=== PATIENT | male | born 1985 | race Caucasian/White ===

== ENCOUNTER 2021-08-26 15:16 | Emergency (ER) | payer OTHER, SELFPAY ==
[2021-08-26 15:28] VITALS: BP 146/88; PULSE 92; RESP 16; TEMP 36.8; O2SAT 99
--- NOTE | 2021-08-26 15:28 | ED.DENTAL ---
HPI - Dental/Oral General Chief complaint: Upper Respiratory Infection Stated complaint: sore throat Time Seen by Provider: 08/26/21 15:28 Source: patient Mode of arrival: ambulatory Limitations: no limitations History of Present Illness HPI Narrative: 35-year-old male presents with irritation to roof of mouth for 1 day. Reports pain with swallowing. States that he can feel swollen bumps on roof of mouth. Denies eating anything that was irritating. Recently saw dentist and was told good oral health. Denies dental pain. No fever chills. Still able to eat and drink but reports that certain foods are irritating. All systems reviewed and negative except. Related Data Home Medications Medication Instructions Recorded Confirmed albuterol sulfate INHALATION 08/26/21 levetiracetam PO 08/26/21 metformin mg 08/26/21 oxcarbazepine 08/26/21 Allergies Allergy/AdvReac Type Severity Reaction Status Date / Time No Known Allergies Allergy Verified 08/26/21 15:28 Review of Systems Review of Systems: CONSTITUTIONAL: Denies fever, chills, or sweats. EYES: Denies visual changes, redness, or discharge. ENT: Denies rhinorrhea, congestion, sore throat, or otalgia. Reports pain to roof of mouth. CARDIOVASCULAR: Denies chest pain, palpitations, or edema. RESPIRATORY: Denies cough or dyspnea. GASTROINTESTINAL: Denies abdominal pain, nausea, vomiting, or diarrhea. GENITOURINARY: Denies dysuria or hematuria. SKIN: Denies rash or itching. MUSCULOSKELETAL: Denies back pain, joint pain, or myalgia. NEUROLOGIC: Denies headache, numbness, or weakness. PSYCHIATRIC: Denies anxiety or depression. All other systems reviewed are negative, except as documented in HPI. PMFSH Comments At time of signature, agree with nursing past medical, surgical, social and family history. There is no relevant family history pertinent to the presenting complaint. Exam Narrative: GENERAL: This is a well-nourished, well-developed patient, in no apparent distress. HEAD: normocephalic, atraumatic. EYES: PERRL. Sclera clear/white. Vision is grossly intact. EARS: External ears normal, auditory canals clear and without drainage, TMs normal without perforation. Hearing grossly intact. NOSE: External nose normal with no obvious nasal discharge, nares without redness, no rhinorrhea. MOUTH: no erythema, redness, ulceration to gum, oral mucosa, roof of mouth THROAT: Mucous membranes moist, posterior pharynx clear. NECK: Neck supple, non-tender without lymphadenopathy, masses or thyromegaly. CARDIOVASCULAR: Regular rate RESPIRATORY: Normal respiratory rate SKIN: warm, Dry, intact with no suspicious lesions or rash, good texture and turgor. NEURO: awake, alert, and oriented to person, place and time. There were no obvious focal neurologic abnormalities. EXTREMITIES: Normal range of motion all extremities Course Course Level of Care: Express Care Visit Vital Signs Vital signs: Vital Signs Temperature 36.8 C 08/26/21 15:28 Pulse Rate 92 08/26/21 15:28 Respiratory Rate 16 08/26/21 15:28 Blood Pressure 146/88 H 08/26/21 15:28 Pulse Oximetry 99 08/26/21 15:28 Temperature 36.8 C 08/26/21 15:52 Pulse Rate 92 08/26/21 15:52 Respiratory Rate 16 08/26/21 15:52 Blood Pressure 146/88 H 08/26/21 15:52 Pulse Oximetry 99 08/26/21 15:52 Reviewed MDM - Dental/Oral MDM Narrative Medical decision making narrative: Patient is aware of diagnosis, understands and agrees to treatment plan. Anticipatory guidance given. Patient agrees to follow-up as directed and is aware of reasons to seek care at the emergency department. Portions of this record may have been created with voice recognition software Lab Data Labs: Strep Screen Presumptive Negative *(Reference Range: Negative)* Strep Screen Presumptive Negative *(Reference Range: Negative)*
[2021-08-26 15:52] VITALS: BP 146/88; PULSE 92; RESP 16; TEMP 36.8; O2SAT 99
== END 2021-08-26 16:08 | disposition home or self-care (01) ==
PROVIDERS: Emergency Provider Nurse Practitioner Family; PCP Internal Medicine
DX: K13.70 Unspecified lesions of oral mucosa (principal); J45.909 Unspecified asthma, uncomplicated; E11.9 Type 2 diabetes mellitus without complications
CPT/HCPCS: 87081; 87880; 99213; G0463

== ENCOUNTER 2022-02-23 18:34 | Emergency (ER) | payer OTHER, SELFPAY ==
[2022-02-23 18:51] VITALS: BP 129/81; PULSE 98; RESP 18; TEMP 36.2; O2SAT 100
--- NOTE | 2022-02-23 19:30 | ED.URI ---
HPI - URI/Sore Throat General Chief Complaint: Upper Respiratory Infection Stated Complaint: Sore Throat Time Seen by Provider: 02/23/22 18:54 Source: patient, RN notes reviewed and old records reviewed Mode of arrival: ambulatory Limitations: no limitations History of Present Illness HPI Narrative: 36 year old male with complaints of left ear pain and left sided sore throat and neck discomfort for the past 5 days with increase in symptoms today. Patient reports that he has increased pain with swallowing and when bending over, denies any cough or any wheezing. Has been taking some Tylenol for his discomfort. MD elicited complaint: sore throat and other Onset (ago): day(s) (5) Pain scale (0-10): 6 Treatments prior to arrival: acetaminophen Related Data Home Medications Medication Instructions Recorded Confirmed albuterol sulfate 90 mcg/actuation 90 mcg inhalation DIRECTED 08/26/21 02/23/22 aerosol inhaler metformin 500 mg tablet 500 mg DIRECTED 08/26/21 02/23/22 oxcarbazepine 300 mg tablet 300 mg DIRECTED 08/26/21 02/23/22 Allergies Allergy/AdvReac Type Severity Reaction Status Date / Time cefaclor [From Ceclor] Allergy Unknown Verified 02/23/22 18:55 Review of Systems Review of Systems: CONSTITUTIONAL: Denies fever, chills, or sweats. EYES: Denies visual changes, redness, or discharge. ENT: Positive for rhinorrhea, congestion, sore throat, left otalgia. CARDIOVASCULAR: Denies chest pain, palpitations, or edema. RESPIRATORY: Denies cough or dyspnea. GASTROINTESTINAL: Denies abdominal pain, nausea, vomiting, or diarrhea. GENITOURINARY: Denies dysuria or hematuria. SKIN: Denies rash or itching. MUSCULOSKELETAL: Denies back pain, joint pain, or myalgia. NEUROLOGIC: Denies headache, numbness, or weakness. PSYCHIATRIC: Denies anxiety or depression. All systems reviewed & are unremarkable except as noted in HPI and below PMFSH Past Medical History Medical History (Updated 02/27/22 @ 10:21 by Maria Lopez NP) Asthma Diabetes Seizures Surgical History Surgical History (Updated 02/27/22 @ 10:21 by Maria Lopez NP) History of tonsillectomy Social History Social History (Updated 02/27/22 @ 10:23 by Maria Lopez NP) Smoking status: Never smoker Substance use type: does not use Living arrangements: with family Gender identity (if verbalized by the patient): Male Comments At time of signature, agree with nursing past medical, surgical, social and family history. There is no relevant family history pertinent to the presenting complaint Exam Narrative: GENERAL: ill-appearing, well-nourished, and in no acute distress. HEAD: Normocephalic, atraumatic. EYES: PERRLA and EOMI. ENT: Nares red with clear rhinorrhea no epistaxis. Mucous membranes moist.TM's normal with dull light reflex on left, Throat red with no lesions no tonsils present, some post nasal discharge, painful on left side of throat NECK: Supple.left lymphadenopathy CHEST: Clear to auscultation. No respiratory distress.SAO2 100% on room air HEART: Regular rate and rhythm. No murmur heard. Normal peripheral pulses. ABDOMEN: Soft, nontender, nondistended, normal active bowel sounds. EXTREMITIES: Normal range of motion. No edema. SKIN: Warm, dry, no rash. NEURO: No focal deficits. Alert and oriented x3. Course Course Level of Care: Express Care Visit Vital Signs Vital signs: Vital Signs Temperature 36.2 C L 02/23/22 18:51 Pulse Rate 98 02/23/22 18:51 Respiratory Rate 18 02/23/22 18:51 Blood Pressure 129/81 02/23/22 18:51 Pulse Oximetry 100 02/23/22 18:51 Oxygen Delivery Room Air 02/23/22 18:51 Temperature 36.2 C L 02/23/22 18:51 Pulse Rate 98 02/23/22 18:51 Respiratory Rate 18 02/23/22 18:51 Blood Pressure 129/81 02/23/22 18:51 Pulse Oximetry 100 02/23/22 18:51 Oxygen Delivery Room Air 02/23/22 18:51 MDM - URI/Sore Throat Differential Diagnosis Differential benji
== END 2022-02-23 19:48 | disposition home or self-care (01) ==
PROVIDERS: Emergency Provider Registered Nurse; PCP Internal Medicine
DX: J02.9 Acute pharyngitis, unspecified (principal); J45.909 Unspecified asthma, uncomplicated; E11.9 Type 2 diabetes mellitus without complications; G40.909 Epilepsy, unspecified, not intractable, without status epilepticus
CPT/HCPCS: 87081; 87880; 99213; G0463

== ENCOUNTER 2022-07-26 18:50 | Emergency (ER) | payer OTHER, SELFPAY ==
[2022-07-26 18:58] VITALS: BP 133/89; PULSE 100; RESP 14; TEMP 36.5; O2SAT 100
--- NOTE | 2022-07-26 18:58 | ED.GENADULT ---
HPI - General Adult General Chief complaint: Extremity Injury, Upper Stated complaint: Right Hand Pain Time Seen by Provider: 07/26/22 18:58 Source: patient, RN notes reviewed and old records reviewed Mode of arrival: ambulatory Limitations: no limitations History of Present Illness HPI narrative: 36-year-old male presents to the [facility] with complaints callus to right fingers, tip 1st, palmar aspect of 2nd, tip of 3rd. Also has a opening of the callus at the dip palmar aspect. Mild erythema and surrounding of the dip Patient is right-hand dominant Had recently seen primary care provider, was told to use triamcinolone, put Vaseline on his hands and work on gloves. He has not done so. Has full range of motion, sensation intact. Capillary refill under 2 seconds. Patient states every winter he gets severely callused hands mostly on the right side of the same fingers. Rarely on the left hand Onset (ago): week(s) Related Data Home Medications Medication Instructions Recorded Confirmed metformin 500 mg tablet 500 mg DIRECTED 08/26/21 07/26/22 oxcarbazepine 300 mg tablet 300 mg DIRECTED 08/26/21 07/26/22 triamcinolone acetonide 0.1 % applic topical 07/26/22 topical cream Allergies Allergy/AdvReac Type Severity Reaction Status Date / Time cefaclor [From Ceclor] Allergy Unknown Verified 07/26/22 19:01 Review of Systems Review of Systems: All systems reviewed & are unremarkable except as noted in HPI and below Constitutional: Constitutional: Reports no additional constitutional complaints Eyes: Eyes: Reports no additional eye complaints ENT: Reports system reviewed and no additional complaints, except as documented Cardiovascular: Cardiovascular: Reports no additional cardiovascular complaints, Denies chest pain and Denies dyspnea Respiratory: Respiratory: Reports no additional respiratory complaints, Denies chest congestion, Denies cough and Denies dyspnea Gastrointestinal: Gastrointestinal: Reports no additional gastrointestinal complaints, Denies abdominal pain, Denies nausea and Denies vomiting Musculoskeletal: Musculoskeletal: Reports no additional musculoskeletal complaints Integumentary/Breasts: Skin/Breast: Reports as per HPI Neurologic: Reports system reviewed and no additional complaints, except as documented Psychiatric: Psychiatric: Reports no additional psychiatric complaints Allergic/Immunologic: Allergic/Immunologic: Reports no additional allergic/immunologic complaints PMFSH Past Medical History Medical History Asthma Diabetes Seizures Surgical History Surgical History History of tonsillectomy Social History Social History Smoking status: Never smoker Substance use type: does not use Living arrangements: with family Gender identity (if verbalized by the patient): Male Comments At the time of my signature, I reviewed and agree with the nursing past medical, surgical, social, and family history. There is no relevant family history pertinent to the patient complaint. Exam Const: General: cooperative, healthy appearing, comfortable, no acute distress, well developed, alert and well nourished Nutritional Appearance: well nourished Orientation/consciousness: patient oriented x3 Limitations: no limitations HENMT: Head: normal to inspection Ears: hearing grossly normal bilaterally and external ears normal Face/Nose/Sinus: Normal external nose present, Normal nares present, Normal nasal mucous membranes and turbinates present and normal facial exam Face and sinus: normal facial exam Mouth: Yes Normal oral and palatal mucosa present, Yes lip normal and Yes moist mucous membranes Eyes: General: appearance normal, both eyes and all related structures Alignment and Position: alignment normal Periorbital: periorbi
[2022-07-26 19:22] LABS: Glucose Point of Care 148 mg/dl (65-105)
== END 2022-07-26 19:33 | disposition home or self-care (01) ==
PROVIDERS: Emergency Provider Nurse Practitioner; PCP Internal Medicine
DX: L84 Corns and callosities (principal); S60.422A Blister (nonthermal) of right middle finger, initial encounter; L08.9 Local infection of the skin and subcutaneous tissue, unspecified; X58.XXXA Exposure to other specified factors, initial encounter; J45.909 Unspecified asthma, uncomplicated; E11.9 Type 2 diabetes mellitus without complications; G40.909 Epilepsy, unspecified, not intractable, without status epilepticus
CPT/HCPCS: 82948; 99213; G0463

== ENCOUNTER 2023-01-10 12:37 | Outpatient (CLI) | payer OTHER, SELFPAY ==
--- NOTE | ~2023-01-10 | MR_ITS ---
EXAMINATION: MR lower leg LT wo con DATE: 01/10/2023 13:23 INDICATION: Left lower leg pain TECHNIQUE: Magnetic resonance imaging (MRI) of the left lower leg was performed without intravenous c ontrast. Sequences included axial, sagittal and coronal T1-weighted FSE and fluid sensitive FSE STIR and axial T1-weighted FS FSE. COMPARISON: Left tibia/fibular radiographs dated 11/13/2022 FINDINGS: There is a 12.5 x 1.9 x 3.6 cm loculated complex fluid collection along the myotendinous junction of the medial head of the gastrocnemius muscle. There are a few thin internal septations with dependentl y layering T1 hyperintense nonfat saturating material consistent bladder proteinaceous fluid. Given t he location, appearance and provided history of a leg injury this be most consistent with a hematoma related to a moderate grade strain/partial tear of the myotendinous junction. There is mild feathery edema in the surrounding muscle and overlying subcutaneous tissues. Remaining muscles and tendons of the left calf are otherwise unremarkable. Bone alignment is normal. Normal marrow signal throughout w ith no reactive edema, fracture or pathologic marrow replacing process. IMPRESSION: 1. Moderate grade strain/partial tear along the myotendinous junction the medial head of the gastrocn emius with 12.5 x 3.6 x 1.9 cm hematoma at the site of the tear. Reviewed, dictated and finalized at location L. IMPRESSION: 1. Moderate grade strain/partial tear along the myotendinous junction the media l head of the gastrocnemius with 12.5 x 3.6 x 1.9 cm hematoma at the site of th e tear.
== END 2023-01-10 12:38 | disposition home or self-care (01) ==
PROVIDERS: PCP Internal Medicine; Visit Provider Nurse Practitioner
DX: M79.662 Pain in left lower leg (principal); M79.89 Other specified soft tissue disorders; S86.812A Strain of other muscle(s) and tendon(s) at lower leg level, left leg, initial encounter; T14.90XA Injury, unspecified, initial encounter
CPT/HCPCS: 73718

== ENCOUNTER 2023-05-13 08:39 | Emergency (ER) | payer OTHER, SELFPAY ==
[2023-05-13 08:50] VITALS: BP 136/94; PULSE 77; RESP 16; TEMP 36.9; O2SAT 100
--- NOTE | 2023-05-13 09:04 | ED.GENADULT ---
HPI - General Adult General Chief complaint: Unspecified Stated complaint: swollen,painful area on neck left side Time Seen by Provider: 05/13/23 09:08 Source: patient Mode of arrival: ambulatory Limitations: no limitations History of Present Illness HPI narrative: 37-year-old male presents concern for left-sided lymphadenopathy, left-sided sinus pain, pain behind his left eye, headache. Reports chronic problems with the sinuses. Reports he had slightly tender lymph node for 1 week that he noticed was more tender last night. He denies dental pain. Denies difficulty swallowing. MD complaint: Lymphadenopathy Related Data Home Medications Medication Instructions Recorded Confirmed metformin 500 mg tablet 500 mg DIRECTED 08/26/21 05/13/23 levetiracetam 500 mg tablet 500 mg PO DIRECTED 05/13/23 05/13/23 oxcarbazepine 600 mg tablet 600 mg PO DIRECTED 05/13/23 05/13/23 Allergies Allergy/AdvReac Type Severity Reaction Status Date / Time cefaclor [From Ceclor] Allergy Unknown Verified 05/13/23 08:53 Review of Systems Review of Systems: CONSTITUTIONAL: Denies malaise, chills, sweats, or fever. EYES: Denies visual changes, redness, or discharge. ENT: Reports chronic rhinorrhea, congestion, sinus pain, otalgia, left-sided lymph node tenderness. Denies sore throat. CARDIOVASCULAR: Denies chest pain, palpitations, or edema. RESPIRATORY: Denies cough or dyspnea. MUSCULOSKELETAL: Denies myalgia. NEUROLOGIC: Denies numbness, weakness. Reports headache. PSYCHIATRIC: Denies anxiety or depression. All systems reviewed & are unremarkable except as noted in HPI and below [facility] Past Medical History Medical History (Updated 05/13/23 @ 09:16 by Linda Wei NP) Asthma Diabetes Pain and swelling of left lower leg Left calf hematoma Seizures Surgical History Surgical History History of tonsillectomy Family History Family History Grandparent Diabetes mellitus Heart disease Other Diabetes mellitus Social History Social History Smoking status: Never smoker Alcohol intake: current Alcohol use details: rarely Substance use: current Substance use type: marijuana Lack of Transportation: No Lack of Food: Never True Current Housing: I Have Housing Concerned About Future Housing: No Difficulty Paying Gas/Electric Bills: No Difficulty Paying for Meds: No Currently Unemployed: YES Education: High School Diploma/GED Difficulty w/ Childcare or Family Care: No Living arrangements: with family Occupation/Education: unemployed Gender identity (if verbalized by the patient): Male Comments At time of signature, agree with nursing past medical, surgical, social and family history. There is no relevant family history pertinent to the presenting complaint Exam Narrative: GENERAL: Well-appearing, well-nourished, and in no acute distress. HEAD: Normocephalic EYES: PERRLA, conjunctivae clear ENT: Nares clear, turbinates edematous and erythematous. Mucous membranes moist. TM pearly nguyễn with dull light reflex bilaterally; no tragal tenderness. Oropharynx erythematous without lesions. Tonsils enlarged and without exudate, no drooling, no hoarseness, no trismus, uvula midline. NECK: Supple. Left cervical lymphadenopathy, soft and mobile CHEST: Clear to auscultation, breath sounds equal. No wheezing, rhonchi, rales, or stridor. No respiratory distress, speaks in full sentences. HEART: Regular rate and rhythm. No murmur heard. SKIN: Warm, dry, no rash. NEURO: Alert and oriented x3. PSYCH: Normal mood and affect Course Course Emergency Course: Patient is aware of diagnosis, understands and agrees to treatment plan. Anticipatory guidance given. Patient agrees to follow-up as directed and is aware of reasons to seek care at
== END 2023-05-13 09:26 | disposition home or self-care (01) ==
PROVIDERS: Emergency Provider Nurse Practitioner; PCP Internal Medicine
DX: J32.9 Chronic sinusitis, unspecified (principal); R59.0 Localized enlarged lymph nodes; F12.90 Cannabis use, unspecified, uncomplicated; J45.909 Unspecified asthma, uncomplicated; E11.9 Type 2 diabetes mellitus without complications; G40.909 Epilepsy, unspecified, not intractable, without status epilepticus
CPT/HCPCS: 87880; 99213; G0463

== ENCOUNTER 2023-08-31 14:26 | Emergency (ER) | payer OTHER, SELFPAY ==
[2023-08-31 15:04] VITALS: BP 130/70; PULSE 86; RESP 16; TEMP 36.4; O2SAT 100
--- NOTE | 2023-08-31 15:12 | ED.URI ---
HPI - URI/Sore Throat General Chief Complaint: Upper Respiratory Infection Stated Complaint: Sore Throat/Ear Irritation Time Seen by Provider: 08/31/23 15:05 Source: patient and RN notes reviewed Mode of arrival: ambulatory Limitations: no limitations History of Present Illness HPI Narrative: 37-year-old male presented for complaint of sinus congestion, sore throat, cough and fatigue over the past few days. Also with Right ear pain for 2 days. Denies shortness of breath, wheezing nausea, vomiting, diarrhea or lethargy. Using cough drops and gargling salt water. MD elicited complaint: cough Related Data Home Medications Medication Instructions Recorded Confirmed metformin 500 mg tablet 500 mg DIRECTED 08/26/21 08/31/23 levetiracetam 500 mg tablet 500 mg PO DIRECTED 05/13/23 08/31/23 oxcarbazepine 600 mg tablet 600 mg PO DIRECTED 05/13/23 08/31/23 Allergies Allergy/AdvReac Type Severity Reaction Status Date / Time cefaclor [From Ceclor] Allergy Unknown Verified 08/31/23 15:01 Review of Systems Review of Systems: CONSTITUTIONAL: Endorses malaise, Denies chills, sweats, fever EYES: Denies visual changes, redness, or discharge ENT: Reports rhinorrhea, congestion, sore throat CARDIOVASCULAR: Denies chest pain, palpitations, edema RESPIRATORY: Reports cough, post nasal drainage. Denies dyspnea GASTROINTESTINAL: Denies abdominal pain, nausea, vomiting, diarrhea SKIN: Denies rash or itching MUSCULOSKELETAL: denies myalgia NEUROLOGIC: Denies headache PMFSH Past Medical History Medical History Asthma Diabetes Pain and swelling of left lower leg Left calf hematoma Seizures Surgical History Surgical History History of tonsillectomy Family History Family History Grandparent Diabetes mellitus Heart disease Other Diabetes mellitus Social History Social History Smoking status: Never smoker Alcohol intake: current Alcohol use details: rarely Substance use: current Substance use type: marijuana Lack of Transportation: No Lack of Food: Never True Current Housing: I Have Housing Concerned About Future Housing: No Difficulty Paying Gas/Electric Bills: No Difficulty Paying for Meds: No Currently Unemployed: YES Education: High School Diploma/GED Difficulty w/ Childcare or Family Care: No Living arrangements: with family Occupation/Education: unemployed Gender identity (if verbalized by the patient): Male Exam Narrative: GENERAL: well-appearing, nontoxic EYES: PERRLA, conjunctivae clear ENT: Mucous membranes moist. Left TM pearly nguyễn with dull light reflex;Right TM erythematous, bulging and intact with purulent effusion; canal not erythematous, no drainage no tragal tenderness. Oropharynx mildly erythematous without lesions or exudate, tonsils 1+ no drooling, no hoarseness, no trismus, uvula midline. No tripod positioning, muffled voice, soft palate or pharyngeal wall bulging NECK: Supple. No lymphadenopathy CHEST: Clear to auscultation, breath sounds equal. HEART: Regular rate and rhythm. No murmur heard. SKIN: Warm, dry, no rash. NEURO: Alert and oriented x3. PSYCH: appears anxious Course Course Emergency Course: Patient is aware of diagnosis, understands and agrees to treatment plan. Anticipatory guidance given. Patient agrees to follow-up as directed and is aware of reasons to seek care at the emergency department. Portions of this record may have been created with voice recognition software Level of Care: Express Care Visit Vital Signs Vital signs: Vital Signs Temperature 97.5 F L 08/31/23 15:04 Pulse Rate 86 08/31/23 15:04 Respiratory Rate 16 08/31/23 15:04 Blood Pressure 130/70 08/31/23 15:04 Pulse Oxi
== END 2023-08-31 15:35 | disposition home or self-care (01) ==
PROVIDERS: Emergency Provider Nurse Practitioner Family; PCP Internal Medicine
DX: J02.0 Streptococcal pharyngitis (principal); H66.91 Otitis media, unspecified, right ear; U07.1 COVID-19; F12.90 Cannabis use, unspecified, uncomplicated; J45.909 Unspecified asthma, uncomplicated; E11.9 Type 2 diabetes mellitus without complications; G40.909 Epilepsy, unspecified, not intractable, without status epilepticus
CPT/HCPCS: 87426; 87804; 87880; 99213; G0463